=== PATIENT | female | born 1955 | race Caucasian/White ===

== ENCOUNTER → 2016-06-20 | Outpatient (CLI) | payer BC ==
[~2016-06-20] MED LIST: ACET-789 PO; ATOR40TA2 PO; CITA20TA12 PO; EPIG1000 MC; ERGO400C PO; ESTR0.5T PO; METF500T4 PO; MULT-642 PO; ONDA4TAB8 PO; OSLT75C GT; OXYC1TAB87 PO; PRM25T PO; PROM25SU10 PR; TAMS-8 PO
--- NOTE | 2016-06-21 08:43 | Diagnostic Imaging Report ---
EXAM: Bilateral Digital Screening Mammography, with computer aided detection system (CAD). DATE: June 20, 2016. COMPARISON: December 19, 2015; June 22, 2015; December 26, 2014; June 21, 2014; June 14, 2013. INDICATION: Breast cancer screening. FINDINGS: There are scattered fibroglandular densities. There are no suspicious findings in either breast. IMPRESSION: No mammographic evidence of malignancy. Recommend annual screening mammography and clinical breast exam. ACR BI-RADS Category 1: Negative. Result letter will be mailed to the patient. Note: At least 10% of breast cancer is not imaged by mammography. Dictated by: Dictated on workstation # [id number]
== END ==
LOC: RAD 14:24
PROVIDERS: ATTEND Family Medicine
DX: Z12.31 Encounter for screening mammogram for malignant neoplasm of breast (principal)

== ENCOUNTER → 2016-07-03 | Outpatient (CLI) | payer BC ==
--- NOTE | 2016-07-03 17:22 | Diagnostic Imaging Report ---
PROCEDURE: CT abdomen and pelvis without contrast. TECHNIQUE: Multiple contiguous axial images were obtained through the abdomen and pelvis without the use of intravenous contrast. INDICATION: Hematuria. FINDINGS: There is some chronic interstitial change noted in the lungs. The kidneys show no evidence of calculi. Renal outlines are smooth. There is a fatty lesion in the right kidney measuring 1 cm, likely representing angiomyolipoma. The ureters are normal bilaterally. Bladder is decompressed. No calculi seen in the bladder. There are several phleboliths in the pelvis. Liver appears normal. Gallbladder is absent. Bile ducts are normal. Pancreas and spleen are normal. The aorta is atherosclerotic without evidence of aneurysm. There is moderate amount of stool in the colon. There is diffuse diverticulosis without evidence of diverticulitis. There is no free air or free fluid. Bone windows appear normal. IMPRESSION: 1. No evidence of renal calculi or obstruction. 2. There is a small fatty lesion in the right kidney measuring 1 cm likely representing angiomyolipoma. 3. Diverticulosis without evidence of diverticulitis. These findings were called to Dr. August. Dictated by: Dictated on workstation # [id number]
== END ==
LOC: RAD 16:37
PROVIDERS: ATTEND Family Medicine
DX: R31.9 Hematuria, unspecified (principal); N28.89 Other specified disorders of kidney and ureter; K57.90 Diverticulosis of intestine, part unspecified, without perforation or abscess without bleeding; Z90.49 Acquired absence of other specified parts of digestive tract
CPT/HCPCS: 74176

== ENCOUNTER 2016-07-05 13:34 | Emergency (ER) | payer BC ==
[~2016-07-05] VITALS: Ht 149.9 cm; Wt 90.0 kg
[2016-07-05] MEDS ORDERED: SODIUM CHLORIDE FLUSH 10 ML SYR IV PRN (13:40)
[2016-07-05] MEDS ORDERED: SODIUM CHLORIDE FLUSH 3 ML SYR IV PRN (13:40)
[2016-07-05] MEDS ORDERED: PROMETHAZINE HCL INJ 25 MG in SODIUM CHLORIDE 25 ML IV ONE (13:45)
[2016-07-05] MEDS ORDERED: HYDROmorphone 1 MG/ML (DILAUDID) SYRINGE IV ONE (13:45)
--- NOTE | 2016-07-05 14:15 | NUR ---
Now rates discomfort at "1". SpO2 drops to mid-80s when pt dozes off. When pt takes couple of deep breaths her SpO2 rises into the mid-90s.
[2016-07-05 15:47] LABS: BILIRUBIN,URINE Negative (Negative); COLOR,URINE Yellow; GLUCOSE, URINE (UA) Negative (Negative); LEUKOCYTE ESTERASE ,URINE Negative (Negative); UROBILINOGEN,URINE 0.2 mg/dL (0.2-1.0)
[2016-07-05 15:48] LABS: CLARITY,URINE Slightly Cloudy
[2016-07-05 15:49] LABS: PH,URINE >9.0 (5.0 - 8.0)
[2016-07-05 15:57] LABS: RBC,URINE 50-100 /HPF; URINE CENTRIFUGED VOLUME 12 mL
--- NOTE | 2016-07-05 15:59 | NUR ---
PATIENT RESTING QUIETLY ON ER CART. AWAKENS EASILY TO SOFT SPOKEN VERBAL STIMULI. DENIES DISCOMFORT, NAUSEA, FEELING COLD, OR OTHER PROBLEM. APPEARS TO GO BACK TO SLEEP AFTER NURSE STOPS SPEAKING.
[2016-07-05 17:44] VITALS: BP 148/79
== END 2016-07-05 18:19 | disposition home or self-care (01) ==
LOC: ED 13:36
DX: N13.2 Hydronephrosis with renal and ureteral calculous obstruction (principal)
CPT/HCPCS: 74178; 81003; 81015; 96365; 96366; 96375; 99284; J1170; J2550; Q9967; 99283

== ENCOUNTER → 2016-07-25 | Outpatient (CLI) | payer BC | LOC: RAD 16:38 | PROVIDERS: ATTEND Urology | DX: N20.0 Calculus of kidney (principal); Z96.0 Presence of urogenital implants | CPT/HCPCS: 74000 ==

== ENCOUNTER → 2016-09-04 | Outpatient (CLI) | payer BC ==
[2016-09-04 17:03] LABS: ALBUMIN 4.2 g/dL (3.4-5.0); ANION GAP 13.2 MEQ/L (3-15); MAGNESIUM* 2.1 mg/dL (1.6-2.3); PHOSPHORUS 3.8 mg/dL (2.4-4.9)
== END ==
LOC: LAB 16:39
PROVIDERS: ATTEND Urology
DX: N20.0 Calculus of kidney (principal)
CPT/HCPCS: 36415; 80048; 82040; 83735; 84100